=== PATIENT | female | born 1985 | race African-American/Black ===

== ENCOUNTER 2025-09-05 21:28 | Emergency (ER) | payer OTHER ==
[~2025-09-05] VITALS: Ht 162.6 cm; Wt 64.4 kg
[2025-09-05] MEDS ORDERED: ANTI-ITCH28 GM TOP (22:50)
[2025-09-05] MEDS ORDERED: MEDROLPACK PO (22:50)
[2025-09-05] MEDS ORDERED: METHYLPREDNISOLONE SOD SUCC 40 MG VIAL IM ONE (23:00)
[2025-09-05] MEDS ORDERED: DIPHENHYDRAMINE HCL 50 MG/ML VIAL 1ML IM ONE (23:00)
[2025-09-05] MEDS ORDERED: DIPHENHYDRAMINE HCL 50 MG/ML VIAL 1ML ONE (23:15)
[2025-09-05] MEDS ORDERED: METHYLPREDNISOLONE SOD SUCC 40 MG VIAL ONE (23:15)
== END 2025-09-06 01:45 | disposition home or self-care (01) ==
LOC: ER 21:29
DX: S20.362A Insect bite (nonvenomous) of left front wall of thorax, initial encounter (principal); W57.XXXA Bitten or stung by nonvenomous insect and other nonvenomous arthropods, initial encounter; Y93.89 Activity, other specified; Y92.89 Other specified places as the place of occurrence of the external cause; Y99.9 Unspecified external cause status